=== PATIENT | female | born 1955 | race Caucasian/White ===

== ENCOUNTER 2016-07-27 16:06 | Emergency (ER) | payer OTHER ==
[~2016-07-27] VITALS: Ht 160 cm; Wt 59.9 kg
[2016-07-27 16:20] VITALS: BP 131/89; PULSE 78; RESP 20; TEMP 98.4; O2SAT 97
--- NOTE | 2016-07-27 16:25 | NUR ---
Pt placed to ER waiting room in stable condition.
--- NOTE | 2016-07-27 17:28 | NUR ---
Dr. Spear in triage to assess pt.
[2016-07-27 17:35] VITALS: BP 128/86; PULSE 72; RESP 20; TEMP 98.2; O2SAT 100
--- NOTE | 2016-07-27 17:35 | NUR ---
Patient given written and verbal discharge instructions and verbalizes understanding. ER MD discussed with patient the results and treatment provided. Patient in stable condition. ID arm band removed. Rx of Promethizine with Codeine, Proair Inh, Prednisone given. Patient educated on pain management and to follow up with PMD. Pain Scale 0/10. Opportunity for questions provided and answered.
== END 2016-07-27 17:35 | disposition home or self-care (01) ==
LOC: SED 16:06
DX: J20.9 Acute bronchitis, unspecified (principal); E11.9 Type 2 diabetes mellitus without complications; Z86.59 Personal history of other mental and behavioral disorders
CPT/HCPCS: 99283